=== PATIENT | male | born 1995 | race Caucasian/White ===

== ENCOUNTER 2017-02-22 02:12 | Emergency (ER) | payer OTHER ==
--- NOTE | 2017-02-22 02:50 | ED UPPER/LOWER EXTREMITY COMPL ---
History of Present Illness General Chief Complaint: Shoulder Injury Stated Complaint: ? LT SHOULDER DISLOCATION Source: patient, family Exam Limitations: no limitations Vital Signs & Intake/Output Vital Signs & Intake/Output Vital Signs Date Time Temp Pulse Resp B/P B/P Pulse O2 O2 Flow FiO2 Mean Ox Delivery Rate 02/22 0227 98.3 80 16 128/90 98 Room Air Room Air Allergies Coded Allergies: NO KNOWN ALLERGIES (08/18/11) Triage Note: PT BROUGHT DIRECTLY TO 7 FOR LEFT SHOULER PAIN S/P FALL WHILE MOPPING. PT STATES THIS IS A WORK RELATED INJURY. PT STATES PAIN IS 10/10, + SENSATION BUT UNABLE TO LIFT ARM Triage Nurses Notes Reviewed? yes HPI: Patient was at work mopping the floor one he turned suddenly and slips in the left floor and hit his left shoulder into a wall. Patient denies hitting his head and there was no loss of consciousness. Since then patient has been experiencing 10 out of 10 pain to his left shoulder. The pain increases with movement. There is no radiation of the pain. The pain is constant. There is no weakness or numbness. The patient denies any other injury. Past History Travel History Traveled to [place] past 21 day No Medical History Any Pertinent Medical History? see below for history Psychiatric: ADHD Influenza Vaccine: 06/04/11 Surgical History Surgical History: non-contributory Psychosocial History Who do you live with Family Services at Home None What is your primary language Ugandan Tobacco Use: Never used ETOH Use: occasional use Illicit Drug Use: denies illicit drug use Family History Hx Contributory? No Review of Systems Review of Systems Constitutional: Reports: no symptoms. Respiratory: Reports: no symptoms. Cardiovascular: Reports: no symptoms. Gastrointestinal/Abdominal: Reports: no symptoms. Musculoskeletal: Reports: see HPI, joint pain, joint swelling. Neurological/Psychological: Reports: no symptoms. Immunological: Reports: no symptoms. Physical Exam Physical Exam General Appearance: well developed/nourished, alert, awake, anxious, moderate distress Head: atraumatic, normal appearance Eyes: Bilateral: PERRL, EOMI. Ears, Nose, Throat: normal pharynx, normal ENT inspection, hearing grossly normal Neck: normal inspection, supple, full range of motion, no midline tenderness Cardiovascular/Respiratory: normal breath sounds, normal peripheral pulses, regular rate/rhythm, no respiratory distress Shoulder Left: tenderness, limited range of motion Shoulder Right: normal range of motion, normal inspection Elbow Left: normal range of motion, normal inspection Hand Left: normal inspection, normal range of motion Neurologic/Tendon: normal sensation, normal motor functions, normal tendon functions Skin: intact, normal color, warm/dry Progress Differential Diagnosis: contusion, dislocation, fracture, sprain, tendon injury Plan of Care: Orders Procedure Date/time Status Durable Medical Equipment 02/22 0506 Active Diagnostic Imaging: Viewed by Me: Radiology Read. Discussed w/RAD: Radiology Read. Radiology Impression: PATIENT: KRISTAN MITCHELL PRESENT AGE: 22 PATIENT ACCOUNT NO: [id number] : 93 LOCATION: [facility] ORDERING PHYSICIAN: KRISTAN LIVINGSTON MD SERVICE DATE: 02/22/17 EXAM TYPE: RAD - XRY-SHOULDER COMPLETE-LEFT EXAMINATION: XR SHOULDER, LEFT CLINICAL INFORMATION : Pain after fall COMPARISON: None TECHNIQUE: Three views of the left shoulder. FINDINGS: Glenohumeral alignment appears anatomic. No acute fracture is seen. The acromioclavicular joint is intact. IMPRESSION: No acute findings identified. DICTATED BY: KIRTI IBARRA MD DATE/TIME DICTATED:02/22/17443 APPRAISER ART:AKIKO DATE/TIME TRANSCRIBED:02/22/17443 CONFIDENTIAL, DO NOT COPY WITHOUT APPROPRIATE AUTHORIZATION. <Electronically signed in Other Vendor System> SIGNED BY: KIRTI IBARRA MD 02/22/17448 Departure Departure Disposition: HOME OR SELF CARE Condition: Stable Clinical Impression Primary Impression: Injury of left shoulder Referrals: SHERRELL BLUM,CATHI SNOW DO (PCP/Family) Additional Instructions: WEAR SLING FOR COMFORT RETURN FOR ANY CONCERNS Departure Forms: Customer Survey General Discharge Information Prescriptions: Current Visit Scripts Oxycodone HCl/Acetaminophen (Percocet 5-325 MG Tablet) 1-2 TAB PO Q6P PRN PAIN #20 TAB
--- NOTE | 2017-02-22 04:49 | RADIOLOGY REPORT ---
EXAMINATION: XR SHOULDER, LEFT CLINICAL INFORMATION: Pain after fall COMPARISON: None TECHNIQUE: Three views of the left shoulder. FINDINGS: Glenohumeral alignment appears anatomic. No acute fracture is seen. The acromioclavicular joint is intact. IMPRESSION: No acute findings identified.
[2017-02-22] MEDS ORDERED: PERCOCET 5-3251 EACH PO (05:07)
[2017-02-22 05:19] VITALS: BP 122/70
== END 2017-02-22 05:20 ==
LOC: ERH 02:12
DX: S49.92XA Unspecified injury of left shoulder and upper arm, initial encounter (principal); W01.0XXA Fall on same level from slipping, tripping and stumbling without subsequent striking against object, initial encounter; Y92.9 Unspecified place or not applicable; Y93.E5 Activity, floor mopping and cleaning
CPT/HCPCS: 73030-LT

== ENCOUNTER 2018-03-20 23:32 | Emergency (ER) | payer OTHER ==
[~2018-03-20] VITALS: Ht 185.4 cm; Wt 120.2 kg
[~2018-03-20 23:32] MED LIST: PERCOCET 5-3251 EACH PO
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
[2018-03-21] MEDS ORDERED: ATIVAN1 M1 PO (00:39)
[2018-03-21 00:40] VITALS: BP 138/80
== END 2018-03-21 00:48 ==
LOC: ERH 23:32
DX: F41.9 Anxiety disorder, unspecified (principal); F43.21 Adjustment disorder with depressed mood